=== PATIENT | male | born 1980 | race African-American/Black ===

== ENCOUNTER 2017-05-24 12:43 | Emergency (ER) | payer MEDICAID ==
[2017-05-24 12:54] VITALS: BP 120/71
--- NOTE | 2017-05-24 14:10 | RAD ---
HISTORY: Left knee pain and swelling TECHNIQUE: Multiple transverse and longitudinal ultrasound images were obtained of the veins of the left lower extremity using grayscale, color Doppler, and spectral Doppler imaging with and without compression and with augmentation. FINDINGS: VEINS: The common femoral vein, deep femoral vein, femoral vein and popliteal vein are compressible throughout their course, with normal flow on color Doppler imaging and normal response to augmentation on spectral Doppler imaging. SOFT TISSUES: The region of the left popliteal fossa there is an anechoic and avascular collection measuring 7 x 9 mm in the axial plane and approximately 2.7 cm in length. IMPRESSION: 1. No sonographic evidence of deep vein thrombosis. 2. Small popliteal fossa cyst.
--- NOTE | 2017-05-24 14:42 | RAD ---
INDICATION: Knee pain COMPARISON: None TECHNIQUE: AP, lateral, and oblique views were obtained. FINDINGS: There is no acute bony change. There is a probable loose body. The knee articulates normally. 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 There is a small joint and there are findings suspicious for popliteal cyst. IMPRESSION: MINOR DEGENERATIVE CHANGE WITH PROBABLE LOOSE BODY, JOINT EFFUSION, AND SMALL POPLITEAL CYST.
--- NOTE | 2017-05-24 15:19 | ED ---
Lower Extremity - HPI Summary HPI Summary: 37 male presents to ED with complaints of posterior left knee pain that has been ongoing for the past couple of weeks and has not improved. States it hurts worse at rest, and not so much when active. Describes as a dull aching pain that is 2-3/10. Admits to swelling at times however not currently. Denies any redness, known trauma/injury, and bruising. Pain does not radiate. 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 No other complaints otherwise. Denies numbness/tingling. - History of Current Complaint Chief Complaint: EDExtremityLower Stated Complaint: LT LEG PAIN Time Seen by Provider: 05/24/17 13:00 Hx Obtained From: Patient Mechanism Of Injury: Unknown Onset/Duration: Weeks Severity Initially: Mild Severity Currently: Mild Pain Intensity: 3 Pain Scale Used: 0-10 Numeric Location: Is Discrete @ - posterior left knee Associated Signs And Symptoms: Positive: Swelling - intermittently, Knee Pain Aggravating Factor(s): Other - rest Alleviating Factor(s): Other - movement Able to Bear Weight: Yes - Risk Factors DVT Risk Factors: Prior DVT - Allergies/Home Medications Allergies/Adverse Reactions: Allergies Allergy/AdvReac Type Severity Reaction Status Date / Time BEETS Allergy Hives Uncoded 04/11/16 11:12 PMH/Surg Hx/FS Hx/Imm Hx Endocrine/Hematology History: Denies: Hx Diabetes Cardiovascular History: Reports: Hx Deep Vein Thrombosis Denies: Hx Hypertension Respiratory History: Denies: Hx Asthma Musculoskeletal History: Reports: Hx Orthopedic Injury - L achilles inj with surgical repair 01/2016 - Surgical History Surgery Procedure, Year, and Place: achilles repair - Immunization History Immunizations Up to Date: Yes Infectious Disease History: No Infectious Disease History: Denies: History Other Infectious Disease, Traveled Outside the [place] in Last 30 Days - Family History Known Family History: Positive: None - Social History Alcohol Use: None Substance Use Type: Reports: None Smoking Status (MU): Never Smoked Tobacco Review of Systems Constitutional: Negative Cardiovascular: Negative Respiratory: Negative Positive: Arthralgia, Myalgia - left knee Skin: Negative Neurological: Negative All Other Systems Reviewed And Are Negative: Yes Physical Exam Triage Information Reviewed: Yes Vital Signs On Initial Exam: Initial Vitals Temp Pulse Resp BP Pulse Ox 98.1 F 62 18 120/71 99 05/24/17 12:50 05/24/17 12:50 05/24/17 12:50 05/24/17 12:50 05/24/17 12:50 Vital Signs Reviewed: Yes Appearance: Positive: Well-Appearing, No Pain Distress, Well-Nourished Skin: Positive: Warm, Skin Color Reflects Adequate Perfusion, Dry. Negative: Cold, Cyanosis @, Pale, Erythema @ ENT: Positive: Hearing grossly normal Neck: Positive: Supple, Nontender Respiratory/Lung Sounds: Positive: Clear to Auscultation, Breath Sounds Present. Negative: Rales, Rhonchi, Wheezes Cardiovascular: Positive: Normal, RRR, Pulses are Symmetrical in both Upper and Lower Extremities - 2+ pedal and radial. Negative: Murmur, Rub, Leg Edema Left , Leg Edema Right Musculoskeletal: Positive: Normal, Strength/ROM Intact, Other - no crepitus step off ecchymosis edema or obvious deformity, unable to palpate any cyst. Negative: Limited @, Interruption @, Abnormal @, Pain @, Edema Left, Edema Right Neurological: Positive: Normal, Sensory/Motor Intact, Alert, Oriented to Person Place, Time, CN Intact II-III, Reflexes Intact, NV Bundle Intact Distally, Normal Gait - [place] Coma Scale Coma Scale Total: 15 Diagnostics - Vital Signs Vital Signs Temp Pulse Resp BP Pulse Ox 05/24/17 12:50 98.1 F 62 18 120/71 99 - Laboratory Lab Statement: Any lab studies that have been ordered have been reviewed, and results considered in the medical decision making process. - Radiology left knee Xray Interpretation: Positive (See Comments) - MINOR DEGENERATIVE CHANGE WITH PROBABLE LOOSE BODY, JOINT EFFUSION, AND SMALL POPLITEAL CYST. Radiology Interpretation Completed By: Radiologist - Ultrasound No standard instances Ultrasound Interpretation: Positive (See Comments) - 1. No sonographic evidence of deep vein thrombosis. 2. Small popliteal fossa cyst. Ultrasound Interpretation Completed By: Radiologist Lower Extremity Course/Dx - Course Course Of Treatment: minimal pain, therefore no medication given. US obtianed to rule out DVT and was negative. Did show smal popliteal cyst, along with knee x-ray. Also showed arthritis with small bony fragment from previous trauma or arthritis. RICE, NSAIDs and follow up ortho. Aware of worsening signs and symptoms. Patient understands and agrees. No other complaints at this time. - Diagnoses Differential Diagnosis/HQI/PQRI: Positive: Arthritis, Contusion, DVT, Foreign Body, Fracture (Closed), Sprain, Strain, Other - rizzo's cyst, joint effusion Provider Diagnoses: Popliteal cyst, Posterior left knee pain, Joint effusion of knee Discharge - Discharge Plan Condition: Stable Disposition: HOME Patient Education Materials: Bakers Cyst (ED) Referrals: Camille Thomas MD [Medical Doctor] - Gumaro Zhu MD [Primary Care Provider] - Additional Instructions: Wear rey bandage for compression. Ice knee, especially when swollen. Aleve or tylenol as needed for discomfort and inflammation. Rest and elevate. Follow up with Ortho if symptoms persist, worsen or become really bothersome. Any new or worsening symptoms, as discussed, please seek medical attention promptly.
== END 2017-05-24 15:40 | disposition home or self-care (01) ==
LOC: ED 12:43
DX: M25.462 Effusion, left knee (principal); M25.562 Pain in left knee; M71.22 Synovial cyst of popliteal space [Baker], left knee
CPT/HCPCS: 99282

== ENCOUNTER 2018-02-13 09:33 | Emergency (ER) | payer MEDICAID, OTHER ==
--- NOTE | 2018-02-13 09:50 | ED ---
Lower Extremity - HPI Summary HPI Summary: 37-year-old male presents with left knee injury yesterday. He was playing [employer] and fell onto his left knee. He states he twisted his knee. He states he did previous injury to his knee, a couple months ago. He did not follow up. No numbness or tingling. No popping or locking. No weakness. Has able to place weight on the area but it causes pain. Has been taking ibuprofen for pain. Pain is worse when he tries to ambulate. Denies any other injury. - History of Current Complaint Chief Complaint: EDExtremityLower Stated Complaint: LT KNEE INJURY Time Seen by Provider: 02/13/18 09:38 Pain Intensity: 6 - Allergies/Home Medications Allergies/Adverse Reactions: Allergies Allergy/AdvReac Type Severity Reaction Status Date / Time BEETS Allergy Hives Uncoded 02/13/18 09:36 PMH/Surg Hx/FS Hx/Imm Hx Endocrine/Hematology History: Denies: Hx Diabetes Cardiovascular History: Reports: Hx Deep Vein Thrombosis Denies: Hx Hypertension Respiratory History: Denies: Hx Asthma Musculoskeletal History: Reports: Hx Orthopedic Injury - L achilles inj with surgical repair 01/2016 - Surgical History Surgery Procedure, Year, and Place: achilles repair Infectious Disease History: No Infectious Disease History: Denies: History Other Infectious Disease, Traveled Outside the [place] in Last 30 Days - Family History Known Family History: Positive: None - Social History Alcohol Use: None Substance Use Type: Reports: None Smoking Status (MU): Never Smoked Tobacco Review of Systems Negative: Fever Negative: Chest Pain Negative: Shortness Of Breath Positive: Myalgia - left knee pain All Other Systems Reviewed And Are Negative: Yes Physical Exam Triage Information Reviewed: Yes Vital Signs On Initial Exam: Initial Vitals Temp Pulse Resp BP Pulse Ox 99.4 F 58 16 135/63 98 02/13/18 09:34 02/13/18 09:34 02/13/18 09:34 02/13/18 09:34 02/13/18 09:34 Vital Signs Reviewed: Yes Appearance: Positive: Well-Appearing Skin: Positive: Warm, Dry Head/Face: Positive: Normal Head/Face Inspection Eyes: Positive: Normal, Conjunctiva Clear ENT: Positive: Pharynx normal Respiratory/Lung Sounds: Positive: Clear to Auscultation, Breath Sounds Present Cardiovascular: Positive: Normal, RRR Musculoskeletal: Positive: Strength/ROM Intact - left knee with pain, Edema Left - medial aspect knee, Other - tenderness over left medial aspect of knee, neg anterior drawer, neg maureen Neurological: Positive: Normal Psychiatric: Positive: Normal Diagnostics - Vital Signs Vital Signs Temp Pulse Resp BP Pulse Ox 02/13/18 09:34 99.4 F 58 16 135/63 98 - Laboratory Lab Statement: Any lab studies that have been ordered have been reviewed, and results considered in the medical decision making process. - Radiology knee Xray Interpretation: No Acute Changes Radiology Interpretation Completed By: Radiologist Lower Extremity Course/Dx - Course Course Of Treatment: 37-year-old male presents with left knee injury yesterday. He was playing [employer] and fell onto his left knee. He states he twisted his knee. He states he did previous injury to his knee, a couple months ago. He did not follow up. No numbness or tingling. No popping or locking. No weakness. Has able to place weight on the area but it causes pain. Has been taking ibuprofen for pain. Pain is worse when he tries to ambulate. Denies any other injury. on exam has tenderness medial aspect of left knee. neurovascular intact. neg ballotments. xray normal. will give knee immbolizer and if no improvement will have follow up with ortho. patient understand and agrees with plan. - Diagnoses Differential Diagnosis/HQI/PQRI: Positive: Fracture (Closed), Sprain, Strain Provider Diagnoses: Left knee pain Discharge - Sign-Out/Discharge Documenting (check all that apply): Patient Departure - Discharge Plan Condition: Good Disposition: HOME Patient Education Materials: Knee Pain (ED) Referrals: Gumaro Zhu MD [Primary Care Provider] - Doc Hughes MD [Medical Doctor] - Additional Instructions: Use immobilizer Stay off knee as much as possible Ice, elevate, Ibuprofen or Tylenol every 6 hours for pain Follow up with ortho if no improvement Return to ED if develop or any new or worsening symptoms - Billing Disposition and Condition Condition: GOOD Disposition: Home
--- NOTE | 2018-02-13 10:14 | RAD ---
Indication: Left knee injury. 4 views of left knee demonstrates no fracture. No evidence of joint effusion is noted. IMPRESSION: Unremarkable left knee.
[2018-02-13 11:10] VITALS: BP 118/61
== END 2018-02-13 11:10 | disposition home or self-care (01) ==
LOC: ED 09:33
DX: M25.562 Pain in left knee (principal); Z86.718 Personal history of other venous thrombosis and embolism; Z91.018 Allergy to other foods
CPT/HCPCS: 99282

== ENCOUNTER 2018-03-20 09:52 | Emergency (ER) | payer OTHER ==
--- NOTE | 2018-03-20 10:16 | ED ---
Lower Extremity - HPI Summary HPI Summary: The pt is a 37 y/o male [facility]/o R knee pain for one month, worse today. The non-radiating pain is rated 4/10 in severity and described as a sharp. He twisted his knee while playing [employer] one month ago and came to the ER and no fractures or tears were diagnosed. He had plain xray. He did not see his PCP or contact orthopedics for follow up. He has since used 2 knee braces. The pain is aggravated by sitting down in one position for a long time and a shift in position. He notes a limp upon standing. 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 He can walk and squat normally. He reports a prior surgery on his L knee 2 years ago at [facility] [facility]. The pt is allergic to beets. He denies Ibuprofen use. Home Medications Medication Instructions Recorded Confirmed Type NK [No Home Medications Reported] 11/14/12 03/20/18 History Initial Vital Signs Temp 100 F 03/20/18 09:55 Pulse 66 03/20/18 09:55 Resp 18 03/20/18 09:55 BP 159/77 03/20/18 09:55 Pulse Ox 99 03/20/18 09:55 - History of Current Complaint Chief Complaint: EDExtremityLower Stated Complaint: LT KNEE PAIN Time Seen by Provider: 03/20/18 10:08 Hx Obtained From: Patient, Medical Records - prior xray and provider report reviewed Mechanism Of Injury: Twisted Onset of Pain: Post Accident Onset/Duration: Weeks - one month Severity Initially: Moderate Severity Currently: Moderate Pain Intensity: 4 Pain Scale Used: 0-10 Numeric Timing: Constant, Lasting Weeks - 4 weeks Location: Is Discrete @ - Medial L knee Character Of Pain: Sharp Associated Signs And Symptoms: Positive: Knee Pain - Medial L knee Aggravating Factor(s): Other - Sitting down in one position for a long time and a shift in position. Able to Bear Weight: Yes Related History: Other - He twisted his knee while playing badminton. - Allergies/Home Medications Allergies/Adverse Reactions: Allergies Allergy/AdvReac Type Severity Reaction Status Date / Time BEETS Allergy Hives Uncoded 03/20/18 09:58 PMH/Surg Hx/FS Hx/Imm Hx Previously Healthy: No Endocrine/Hematology History: Denies: Hx Diabetes Cardiovascular History: Reports: Hx Deep Vein Thrombosis Denies: Hx Hypertension Respiratory History: Denies: Hx Asthma Musculoskeletal History: Reports: Hx Orthopedic Injury - L achilles inj with surgical repair 01/2016 - Surgical History Surgery Procedure, Year, and Place: Achilles repair, 2 years ago at [facility] Infectious Disease History: No Infectious Disease History: Denies: History Other Infectious Disease, Traveled Outside the [place] in Last 30 Days - Family History Known Family History: Positive: Unknown - He lived in foster care - Social History Occupation: Employed Part-time Lives: Alone Alcohol Use: Occasionally Substance Use Type: Reports: None Smoking Status (MU): Never Smoked Tobacco Review of Systems Negative: Fever Cardiovascular: Negative Respiratory: Negative Gastrointestinal: Negative Musculoskeletal: Negative - Difficulty walking Positive: Other - Positive: L knee pain Skin: Negative Neurological: Negative Psychological: Normal All Other Systems Reviewed And Are Negative: Yes Physical Exam - Summary Physical Exam Summary: Appearance: Well-appearing, moderate pain distress, well-nourished Skin: Warm, color reflects adequate perfusion, dry Head: Normal Head/Face inspection, atraumatic Eyes: Conjunctiva clear ENT: Normal inspection Neck: Supple, no nodes, no JVD Respiratory: Lungs clear, normal breath sounds, no respiratory distress Cardio: RRR, No murmur, pulses normal, brisk capillary refill Abdomen: Soft, nontender Bowel sounds: Present Musculoskeletal: Strength Intact/ROM intact, no calf tenderness, no edema.Point tenderness medial left knee at joint line, no swelling or effusion, no bruising , ligaments stable with stress. Neg ant drawer test. Distal pulses, sensation intact. No ankle or hip pain on palpation on the left. Psychological: Normal Neuro: Alert, muscle tone normal, no focal deficit Triage Information Reviewed: Yes Vital Signs On Initial Exam: Initial Vitals Temp Pulse Resp BP Pulse Ox 100 F 66 18 159/77 99 03/20/18 09:55 03/20/18 09:55 03/20/18 09:55 03/20/18 09:55 03/20/18 09:55 Vital Signs Reviewed: Yes Diagnostics - Vital Signs Vital Signs Temp Pulse Resp BP Pulse Ox 03/20/18 09:55 100 F 66 18 159/77 99 - Laboratory Lab Statement: Any lab studies that have been ordered have been reviewed, and results considered in the medical decision making process. Re-Evaluation - Re-Evaluation First Eval Re-Evaluation Time: 12:13 Change: Improved - Dr. Regalado discussed previous XRay results with the pt. The pt is ready for discharge. Lower Extremity Course/Dx - Course Course Of Treatment: 37 yo M with continued left knee pain after injury 1 mo ago. Had neg xray at the time. Pt advised with no new injury, and stable knee exam at this time, no need for repeat xray. Pt is referred to his PCP, and to orthopedics for further evaluation and treatment. Pt declines narcotic RX. Will use OTC ibuprofen and OTC knee brace. - Diagnoses Differential Diagnosis/HQI/PQRI: Positive: Bursitis, Sprain, Strain, Tendonitis Provider Diagnoses: Left medial knee pain Discharge - Sign-Out/Discharge Documenting (check all that apply): Patient Departure - home - Discharge Plan Condition: Stable Disposition: HOME Patient Education Materials: Knee Sprain (ED), Meniscus Tear (ED) Referrals: Kade Barriga MD [Medical Doctor] - 7 Days Gumaro Zhu MD [Primary Care Provider] - 2 Days Additional Instructions: Dr. Colindres gave you a copy of your knee xray that was taken 02/13/18. She recommends that you should see an orthopedist for further evaluation. She did not diagnose a meniscus tear by exam today definitely, but she suspects you may have this, so she gave you the discharge instructions about this. Call for an orthopedist appointment today, for as soon as they can evaluate you. Return to the ER with any new or worsening symptoms. - Billing Disposition and Condition Condition: STABLE Disposition: Home - Attestation Statements Document Initiated by Scribe: Yes Documenting Scribe: Sun Jaime Provider For Whom Mark Anthonyibe is Documenting (Include Credential): Marcia Colindres MD Scribe Attestation: Sun Hinton, camiloed for Marcia Colindres MD on 03/22/18 at 2148. Scribe Documentation Reviewed: Yes Provider Attestation: The documentation as recorded by the Sun hunter accurately reflects the service I personally performed and the decisions made by Marcia garcia MD
[2018-03-20 12:18] VITALS: BP 132/68
== END 2018-03-20 12:18 | disposition home or self-care (01) ==
LOC: ED 09:52
DX: M25.562 Pain in left knee (principal); X50.1XXA Overexertion from prolonged static or awkward postures, initial encounter; Y93.73 Activity, racquet and hand sports; Y92.9 Unspecified place or not applicable
CPT/HCPCS: 99281

== ENCOUNTER 2018-05-02 10:09 | Emergency (ER) | payer OTHER ==
--- OUTSIDE RECORDS SUMMARY | 2018-05-02 10:28 | XMS REPORT ---
:1980 External Reference #:[id number] Author Organization [facility] Address [address] [place] [address] [place] [address] Phone [phone] Care Team Providers Name Role Phone Gumaro Zhu MD Primary Care Physician Unavailable Payers Type Date Identification Numbers Payment Provider Subscriber Commercial Policy Number: [id number] Jamalgwen Prescott Group Number: [id number] [address] PayID: [id number] [place] [address] Medigap Part B Expires: 2015 Policy Number: Blue [facility] Ppo Eduardo Prescott [id number] PayID: [id number] [address] [address] [place] [address] Medigap Part B Effective: 2016 Policy Number: [id number] Medicaid Eduardo Prescott Expires: 2016 Group Name: [id number] [address] PayID: [id number] [place] [address] Problems Date Description Provider Status Onset: 02/10/2015 Hematuria syndrome Gumaro Zhu M.D. Active Onset: 02/10/2015 Onychomycosis Gumaro Zhu M.D. Active Onset: 02/10/2015 Atopic dermatitis Gumaro Zhu M.D. Active Onset: 06/05/2015 Chronic prostatitis Gumaro Zhu M.D. 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 016 day Xarelto Hx Tablets 20mg 30tabs 1 by I87.002 [place] 016 - mouth Pachikara, every M.D. 018 day Eliquis Hx Tablets 5mg 40tabs 2 tab Gumaro 016 - bid x 7 P[place]ikara, days and M.D. 016 then 1 tab bid Cipro Hx Tablets 500mg 14tabs 1 by N41.1 Gumaro 015 - mouth Pachikara, twice a M.D. 015 day Lamisil Hx Tablets 250mg 28tabs once B35.1 [place] 015 - daily Pachikara, M.D. 016 No Active Hx Unknown Medications 015 - 015 Hydrocortisone Hx Cream 1% 100gm apply 3 691.8 [place] 015 - times a Pachikara, day M.D. 018 Vital Signs Date Vital Result Comment 04/06/2018 Height 72.75 inches 6'0.75" Weight 181.00 lb Heart Rate 62 /min BP Systolic 110 mmHg BP Diastolic 70 mmHg Body Temperature 97.6 F O2 % BldC Oximetry 97 % BMI (Body Mass Index) 24.0 kg/m2 03/22/2018 Height 72.75 inches 6'0.75" Weight 182.00 lb Heart Rate 60 /min BP Systolic 122 mmHg BP Diastolic 74 mmHg Pain Level 4 BMI (Body Mass Index) 24.2 kg/m2 07/07/2016 Height 71.5 inches 5'11.50" Weight 187.00 lb Heart Rate 54 /min BP Systolic Sitting 118 mmHg BP Diastolic Sitting 68 mmHg O2 % BldC Oximetry 98 % BMI (Body Mass Index) 25.7 kg/m2 04/23/2016 Weight 178.38 lb Heart Rate 52 /min BP Systolic Sitting 120 mmHg BP Diastolic Sitting 80 mmHg Body Temperature 96.9 F O2 % BldC Oximetry 98 % 03/15/2016 Height 71.5 inches 5'11.50" Weight 180.00 lb Heart Rate 78 /min BP Systolic Sitting 106 mmHg BP Diastolic Sitting 80 mmHg Body Temperature 97.6 F O2 % BldC Oximetry 98 % BMI (Body Mass Index) 24.8 kg/m2 03/09/2016 Height 71.5 inches 5'11.50" Weight 186.12 lb has boot ruptured achilies Heart Rate 70 /min BP Systolic 110 mmHg BP Diastolic 70 mmHg Body Temperature 98.2 F O2 % BldC Oximetry 98 % BMI (Body Mass Index) 25.6 kg/m2 09/18/2015 Height 71.5 inches 5'11.50" Weight 182.38 lb Heart Rate 67 /min BP Systolic Sitting 122 mmHg BP Diastolic Sitting 64 mmHg Body Temperature 96.2 F O2 % BldC Oximetry 97 % BMI (Body Mass Index) 25.1 kg/m2 07/17/2015 Height 71.5 inches 5'11.50" Weight 186.00 lb Heart Rate 80 /min BP Systolic Sitting 116 mmHg BP Diastolic Sitting 73 mmHg Body Temperature 97.3 F O2 % BldC Oximetry 99 % BMI (Body Mass Index) 25.6 kg/m2 06/05/2015 Height 71.5 inches 5'11.50" Weight 188.00 lb Heart Rate 60 /min BP Systolic Sitting 112 mmHg BP Diastolic Sitting 65 mmHg Body Temperature 97.0 F O2 % BldC Oximetry 98 % BMI (Body Mass Index) 25.9 kg/m2 05/15/2015 Height 71.5 inches 5'11.50" Weight 188.00 lb Heart Rate 62 /min BP Systolic Sitting 110 mmHg BP Diastolic Sitting 82 mmHg Body Temperature 97.2 F O2 % BldC Oximetry 99 % BMI (Body Mass Index) 25.9 kg/m2 02/10/2015 Height 7273 inches 606'1" Weight 184.25 lb Heart Rate 49 /min BP Systolic Sitting 104 mmHg BP Diastolic Sitting 62 mmHg Body Temperature 97.7 F O2 % BldC Oximetry 98 % BMI (Body Mass Index) 0.0 kg/m2 Results Test Date Test Result H/L Range Note Order 04/06/2018 EKG <pending> Semen Analysis Infertility 07/29/2015 Semen Days Abstinent 3 Semen Collection Method Masturbation Sperm Motility (SEE NOTE) % 70-90 1 Semen Volume 2 mL 1.5-5.0 Semen Viscosity Normal Normal Sperm Count 40 x10(6) Low 70-90 Sperm Morphology (SEE NOTE) % 2 Semen Reviewed By (SEE NOTE) 3 Laboratory test finding 07/17/2015 TSH (Thyroid Stim Horm) 1.00 ?IU/mL 0.34-5.60 Testosterone Free & 07/17/2015 Free Testosterone ng/dl 12.48 ng/dL 1.39- 17.69 4 Total Testosterone 499 ng/dL 240-950 5 Laboratory test finding 07/17/2015 Prolactin 4.7 ng/mL 1.0-20.0 FSH And LH 07/17/2015 FSH (Follicle Stim 3.5 mIU/mL 1-20 Hormone) LH (Lutenizing Hormone) 2.2 ?IU/mL 2-12 Syphilis Screen 07/17/2015 Pediatric/Maternal NO Syphilis IgG Nonreactive Nonreactive 6 RPR TNP Nonreactive RPR Titer TNP Laboratory test finding 07/17/2015 Hepatitis C Antibody Nonreactive Nonreactive 7 Hepatitis B Surface Ag Nonreactive Nonreactive 8 HIV 1/2 AB Evaluation 07/17/2015 HIV 1 2 Antibody Nonreactive Nonreactive 9 Urinalysis Profile 07/17/2015 Urine Color Yellow Urine Appearance Clear Urine Specific [place] 1.030 1.010-1.030 Urine pH 6.0 5-9 Urine Urobilinogen Negative Negative Urine Ketones Negative Negative Urine Protein Negative Negative Urine Leukocytes Negative Negative Urine Blood Negative Negative * * Negative 10 Urine Nitrite Negative Negative Urine Bilirubin Negative Negative Urine Glucose Negative Negative Comp Metabolic Panel 06/06/2015 Sodium 135 mmol/L 133-145 Potassium 4.2 mmol/L 3.5-5.0 Chloride 102 mmol/L 101-111 Co2 Carbon Dioxide 27 mmol/L 22-32 Anion Gap 6 mmol/L 2-11 Glucose 94 mg/dL 70-100 Blood Urea Nitrogen 13 mg/dL 6-24 Creatinine 1.34 mg/dL High 0.67-1.17 BUN/Creatinine Ratio 9.7 8-20 Calcium 9.8 mg/dL 8.6-10.3 Total Protein 7.2 g/dL 6.4-8.9 Albumin 4.3 g/dL 3.2-5.2 Globulin 2.9 g/dL 2-4 Albumin/Globulin Ratio 1.5 1-3 Total Bilirubin 0.50 mg/dL 0.2-1.0 Alkaline Phosphatase 64 U/L 34-104 Alt 18 U/L 7-52 Ast 26 U/L 13-39 Egfr Non- 60.7 >60 Egfr 78.0 >60 11 Creatinine Clearance 04/02/2015 Creatinine 1.47 mg/dL High 0.51-0.95 12 Urine Collection Time 24 12 Urine Total Volume 600 mL 12 Urine Random Creatinine 385.98 mg/dL 12 Creatinine Clearance 109 mL/min 97-137 12 CBC Auto Diff 02/11/2015 White Blood Count 3.9 10^3/uL Low 4.8-10.8 Red Blood Count 4.70 10^6/uL 4.0-5.4 Hemoglobin 13.2 g/dL Low 14.0-18.0 Hematocrit 42 % 42-52 Mean Corpuscular Volume 89 fL 80-94 Mean Corpuscular Hemoglobin 28 pg 27-31 Mean Corpuscular HGB Conc 32 g/dL 31-36 Red Cell Distribution Width 13 % 10.5-15 Platelet Count 187 10^3/uL 150-450 Mean Platelet Volume 11 um3 High 7.4-10.4 Abs Neutrophils 1.8 10^3/uL 1.5-7.7 Abs Lymphocytes 1.7 10^3/uL 1.0-4.8 Abs Monocytes 0.3 10^3/uL 0-0.8 Abs Eosinophils 0.2 10^3/uL 0-0.6 Abs Basophils 0 10^3/uL 0-0.2 Abs Nucleated RBC 0 10^3/uL Granulocyte % 45.0 % 38-83 Lymphocyte % 42.0 % 25-47 Monocyte % 6.9 % 1-9 Eosinophil % 5.5 % 0-6 Basophil % 0.6 % 0-2 Nucleated Red Blood Cells % 0.1 Laboratory test finding 02/11/2015 TSH (Thyroid Stim Horm) 0.93 ?IU/mL 0.34-5.60 Urinalysis Profile 02/11/2015 Urine Color Yellow Urine Appearance Cloudy Urine Specific [place] 1.026 1.010-1.030 Urine pH 6.0 5-9 Urine Urobilinogen Negative Negative Urine Ketones Negative Negative Urine Protein Negative Negative Urine Leukocytes 2+ Negative Urine Blood Negative Negative Urine Nitrite Negative Negative Urine Bilirubin Negative Negative Urine Glucose Negative Negative Urine White Blood Cell 3+(>20/hpf) Absent Urine Red Blood Cell 1+(3-5/hpf) Absent Urine Bacteria Absent Absent Laboratory test finding 02/11/2015 Fungal Culture Id See Comment 13 Laboratory test finding 02/11/2015 Fungus Culture Skin SEE RESULT BELOW 14 Laboratory test finding 02/11/2015 Fungus Culture Skin SEE RESULT BELOW 15 Laboratory test finding 02/11/2015 Fungus Culture Skin SEE RESULT BELOW 16 Laboratory test finding 02/11/2015 Urine Culture And SEE RESULT BELOW 17 Sensitivities Fungus Culture Skin SEE RESULT BELOW 18 Comp Metabolic Panel 02/11/2015 Sodium 138 mmol/L 133-145 Potassium 4.3 mmol/L 3.5-5.0 Chloride 103 mmol/L 101-111 Glucose 83 mg/dL 70-100 Blood Urea Nitrogen 16 mg/dL 6-24 Calcium 9.4 mg/dL 8.6-10.3 Total Protein 6.9 g/dL 6.4-8.9 Albumin 4.1 g/dL 3.2-5.2 Globulin 2.8 g/dL 2-4 Albumin/Globulin Ratio 1.5 1-3 Total Bilirubin 0.60 mg/dL 0.2-1.0 Alkaline Phosphatase 63 U/L 34-104 Alt 20 U/L 7-52 Ast 26 U/L 13-39 Co2 Carbon Dioxide 29 mmol/L 22-32 Anion Gap 6 mmol/L 2-11 Creatinine 1.33 mg/dL High 0.67-1.17 BUN/Creatinine Ratio 12.0 8-20 Egfr Non- 61.5 >60 Egfr 79.2 >60 19 Lipid Profile (Trig/Chol/HDL) 02/11/2015 Triglycerides 67 mg/dL 20 Cholesterol 177 mg/dL 21 HDL Cholesterol 70.3 mg/dL 22 LDL Cholesterol 93 mg/dL 23 1 50% motile 15% non motile 35% sluggish 2 85% NORMAL 15% ABNORMAL PINHEADS, BROKEN NECKS 3 Reviewed by Faye Lizama MD 4 ADDITIONAL INFORMATION Testing performed by Equilibrium Dialysis. 5 ADDITIONAL INFORMATION Testing performed by Liquid Chromatography-Tandem Mass Spectrometry (LC-MS/MS). Test Performed by: [place] [address] Spanisher: Joe Mei II, M.D., Ph.D. 6 Warning: A positive result is not useful for establishing a diagnosis of syphilis. In most situations, such a result may reflect a prior treated infection; a negative result can exclude a diagnosis of syphilis except for incubating or early primary disease. 7 , Pediatric (<=12yrs) or Maternal?: NO 8 , Pediatric (<=12yrs) or Maternal?: NO 9 It is recognized that currently available assays for the detection of antibodies to HIV-1 and/or HIV-2 may not detect all infected individuals. HIV antibodies may be undetectable in some stages of the infection and in some clinical conditions. The performance of this assay has not been established for populations of infants or children. Assayed by Chemiluminescence Microparticle Immunoassay on the Siemens Advia Centaur CP. Values obtained with different methods or kits cannot be used interchangeably.The diagnostic specificity of the ADVIA Centaur 1/O/2 Enhanced assay in the low risk population was 99.90% (6052/6058) with a 95% confidence interval of 99.78 to 99.96%. 10 *Ascorbic acid is present which may interfere with detection of blood. 11 Because ethnic data is not always readily available, this report includes an eGFR for both -Americans and non- Americans. The National Kidney Disease Education Program (NKDEP) does not endorse the use of the MDRD equation for patients that are not between the ages of 18 and 70, are , have extremes of body size, muscle mass, or nutritional status, or are non- or non-. According to the National Kidney Foundation, irrespective of diagnosis, the stage of the disease is based on the level of kidney function: Stage Description GFR(mL/min/1.73 m(2)) 1 Kidney damage with normal or decreased GFR 90 2 Kidney damage with mild decrease in GFR 60-89 3 Moderate decrease in GFR 30-59 4 Severe decrease in GFR 15-29 5 Kidney failure <15 (or dialysis) 12 Collected from 04/01/15614 through 04/02/15614. 13 SOURCE: NAIL CLIPPINGS, FINGERNAIL CULTURE REFERRED FOR ID, FUNGUS FINAL TRICHOPHYTON RUBRUM COMPLEX Test Performed by: [facility] - [address] [address] Spanisher: Joe Mei II, M.D., Ph.D. 14 SEE RESULT BELOW Name: EDUARDO PRESCOTT A : [address]: Gumaro Zhu MD Acct: [id number] Unit: [id number] AGE: 34 Location: [facility] Re02/11/15 SEX: M Status: REG REF SPEC: [id number] DANNY: 02/11/15-0759 [facility] DR: Gumaro Zhu MD REQ: [id number] RECD: 02/11/151245 STATUS: COMP _ SOURCE: FINGERNAIL SPDESC: ORDERED: Fungal Cult Skn Procedure Result Verified Site Fungal Cult Skin/Hair/Nails Final 03/10/15- 1245 ML Organism 1 MOLD Referred Specimen Isolate sent to [facility] for Identification * ML - MAIN LAB ([facility]) . END OF REPORT * ML=Testing performed at Main Lab DEPARTMENT OF PATHOLOGY, [address] [place] [address] Brandon Crandall M.D. Director [facility] # [id number] 15 SEE RESULT BELOW Name: EDUARDO PRESCOTT : [address]: Gumaro Zhu MD Acct: [id number] Unit: [id number] AGE: 34 Location: [facility] Re02/11/15 SEX: M Status: REG REF SPEC: [id number] DANNY: 02/11/15-0759 [facility] DR: Gumaro Zhu MD REQ: [id number] RECD: 02/11/151479 STATUS: RES _ SOURCE: FINGERNAIL SPDESC: ORDERED: Fungal Cult Skn Procedure Result Verified Site Fungal Cult Skin/Hair/Nails Preliminary 03/03/15- 144 ML Organism 1 MOLD Referred Specimen Isolate sent to [facility] for Identification * ML - MAIN LAB ([facility]) . END OF REPORT * ML=Testing performed at Main Lab DEPARTMENT OF PATHOLOGY, [address] [place] [address] Brandon Crandall M.D. Director [facility] # [id number] 16 SEE RESULT BELOW Name: EDUARDO PRESCOTT : [address]: Gumaro Zhu MD Acct: [id number] Unit: [id number] AGE: 34 Location: [facility] Re02/11/15 SEX: M Status: REG REF SPEC: [id number] DANNY: 02/11/15-[address]: Gumaro Zhu MD REQ: [id number] RECD: 02/11/151245 STATUS: RES _ SOURCE: FINGERNAIL SPDESC: ORDERED: Fungal Cult Skn Procedure Result Verified Site Fungal Cult Skin/Hair/Nails Preliminary 02/24/15- 1603 ML Organism 1 MOLD Referred Specimen Isolate sent to [facility] for Identification * ML - [facility] ([facility]) . END OF REPORT * ML=Testing performed at Main Lab DEPARTMENT OF PATHOLOGY, [address] [place] [address] Brandon Crandall M.D. Director [facility] # [id number] 17 SEE RESULT BELOW Name: EDUARDO PRESCOTT : [address]: Gumaro Zhu MD Acct: [id number] Unit: [id number] AGE: 34 Location: [facility] Re02/11/15 SEX: M Status: REG REF SPEC: [id number] DANNY: 02/11/150759 SUBM DR: Gumaro Zhu MD REQ: [id number] RECD: 02/11/15 STATUS: COMP _ SOURCE: URINE SPDESC: ORDERED: Urine Culture Procedure Result Verified Site Urine Culture Final 02/13/15- 1040 ML No Growth Day 2 (<1,000 CFU/mL) * ML - MAIN LAB ([facility]) . END OF REPORT * ML=Testing performed at Main Lab DEPARTMENT OF PATHOLOGY, [address] [place] [address] Brandon Crandall M.D. Director [facility] # [id number] 18 SEE RESULT BELOW Name: EDUARDO PRESCOTT : [address]: Gumaro Zhu MD Acct: [id number] Unit: [id number] AGE: 34 Location: [facility] Re02/11/15 SEX: M Status: REG REF SPEC: [id number] DANNY: 02/11/15-0759 [facility] DR: Gumaro Zhu MD REQ: [id number] RECD: 02/11/15124 STATUS: RES _ SOURCE: FINGERNAIL SPDESC: ORDERED: Fungal Cult Skn Procedure Result Verified Site Fungal Cult Skin/Hair/Nails Preliminary 02/17/15- 1437 ML <No reportable results for this procedure> * ML - MAIN LAB ([facility]) . END OF REPORT * ML=Testing performed at Main Lab DEPARTMENT OF PATHOLOGY, [address] [place] [address] Brandon Crandall M.D. Director [facility] # [id number] 19 Because ethnic data is not always readily available, this report includes an eGFR for both -Americans and non- Americans. The National Kidney Disease Education Program (NKDEP) does not endorse the use of the MDRD equation for patients that are not between the ages of 18 and 70, are , have extremes of body size, muscle mass, or nutritional status, or are non- or non-. According to the National Kidney Foundation, irrespective of diagnosis, the stage of the disease is based on the level of kidney function: Stage Description GFR(mL/min/1.73 m(2)) 1 Kidney damage with normal or decreased GFR 90 2 Kidney damage with mild decrease in GFR 60-89 3 Moderate decrease in GFR 30-59 4 Severe decrease in GFR 15-29 5 Kidney failure <15 (or dialysis) 20 Desirable <150 Borderline high 150-199 High 200-499 Very High >500 21 Desirable <200 Borderline high 200-239 High >239 22 Low <40 Desirable: 40-60 High: >60 23 Desirable: <100 mg/dL Near Optimal: 100-129 mg/dL Borderline High: 130-159 mg/dL High: 160-189 mg/dL Very High: >189 mg/dL Procedures Date CPT Code Description Status 04/06/2018 47100 EKG Tracing & Interpretation Completed Encounters Type Date Location Provider CPT E/M Dx Office Visit 03/22/2018 [place] [address] S83.412A 3:00p [facility] [place] M25.562 Office Visit 07/07/2016 11:00a [facility] Internal Medicine EZE Orozco [address] I87.[address] N46.9 I82.4Z2 Office Visit 04/23/2016 11:00a [facility] [place] [address] M25.561 Office Visit 03/15/2016 3:40p [facility] Internal Gumaro Zhu 58814 I87.009 Medicine - [address] Kathya Office Visit 03/09/2016 2:40p [facility] Internal Gumaro Zhu, [address] M79.662 Medicine - [address] MRon Office Visit 09/18/2015 8:20a [facility] Internal Gumaro Zhu, [address]6314 N46.9 Medicine - [address] Kathya B35.1 Office Visit 07/17/2015 8:20a [facility] Internal Gumaro Zhu M.D. 41646 N46.9 Medicine - [address] R31.9 B35.1 Office Visit 06/05/2015 8:00a [facility] Internal Gumaro Zhu M.D. 61357 N41.1 Medicine - [address] N46.9 B35.1 R31.9 Office Visit 05/15/2015 8:00a [facility] Jodie Zhu, 20115 Z00.00 Medicine - [place] Rasheed N41.1 N46.9 B35.1 Z11.3 R61 Office Visit 02/10/2015 2:00p [facility] Jodie Zhu M.D. [address] Medicine - [address] 599.70 780.8 691.8 V77.91 V77.1 Plan of Care Future Appointment(s):04/19/2018 2:15 pm - Doc Hughes MD at [facility].04/06/2018 - Gumaro Zhu M.D.Z00.00 Encntr for general adult medical exam w/o abnormal findingsNew Labs:HIV 1&2 AB Self ReferredHepatitis B Surface AgHepatitis C AntibodyComments:You should have yearly Flu shot and T dap every 10 years. Exercise 30mts/day 5 times a week, Self testicular exam once a month during shower to feel for lumps or bumpsFollow up:as needed
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
--- NOTE | 2018-05-02 11:05 | RAD ---
HISTORY: hand pain COMPARISONS: None VIEWS: 2 , Frontal and lateral views FINDINGS: BONE DENSITY: Normal. BONES: There is no displaced fracture. JOINTS: There is no arthropathy. ALIGNMENT: There is no dislocation. SOFT TISSUES: Unremarkable. OTHER FINDINGS: None. IMPRESSION: NO ACUTE OSSEOUS INJURY. IF SYMPTOMS PERSIST, RECOMMEND REPEAT IMAGING.
[2018-05-02 12:04] VITALS: BP 125/68
== END 2018-05-02 12:03 | disposition home or self-care (01) ==
LOC: ED 10:09
DX: M79.641 Pain in right hand (principal)
CPT/HCPCS: 99281